=== PATIENT | female | born 1980 ===

== ENCOUNTER 2016-05-13 12:27 | Emergency (ER) | payer OTHER ==
[~2016-05-13] VITALS: Ht 157.5 cm; Wt 57.2 kg
[~2016-05-13 12:27] MED LIST: AUGMENTIN 500-1 EACH PO; CLINDAMYCIN HC300 M1 PO; IBUPROFEN800 M1 PO; ROBITUSSIN AC SY5 ML PO; TYLENOL WITH C1 EACH PO; ZOFRAN ODT4 MG SL
[2016-05-13 13:09] LABS: ABSOLUTE BASOPHIL COUNT 0 /CUMM (0.0-0.2); ABSOLUTE EOSINOPHIL COUNT 0 /CUMM (0.0-0.7); ABSOLUTE GRANULOCYTE CT 8.9 /CUMM (1.4-6.5); ABSOLUTE LYMPH COUNT 1.4 /CUMM (1.2-3.4); ABSOLUTE MONOCYTE COUNT 0.4 /CUMM (0.10-0.60); BASOPHIL % 0.2 % (0.0-2.0); EOSINOPHIL % 0.4 % (0-5); GRANULOCYTE % 82.5 % (42.2-75.2); HEMATOCRIT 34.5 % (37-47); MEAN CORPUSCULAR HGB 24.9 PG (27.0-31.0); MEAN CORPUSCULAR VOLUME 77.8 FL (81.0-99.0); MEAN PLATELET VOLUME 8.6 FL (7.4-10.4); PLATELET COUNT 341 /CUMM (130-400); RBC DISTRIBUTION WIDTH 15.9 % (11.5-14.5); RED BLOOD CELL CT 4.44 /CUMM (4.20-5.40); WHITE BLOOD CELL COUNT 10.8 /CUMM (4.8-10.8)
--- NOTE | 2016-05-13 13:59 | ED CARDIAC/CP/PALPITATIONS ---
History of Present Illness General Chief Complaint: Chest Pain Stated Complaint: NVD, CP Source: patient Exam Limitations: no limitations Vital Signs & Intake/Output Vital Signs & Intake/Output Vital Signs Date Time Temp Pulse Resp B/P Pulse O2 O2 Flow FiO2 Ox Delivery Rate 05/13 1453 99.5 115 20 112/62 100 Room Air 05/13 1400 Room Air Room Air 05/13 1236 99.5 103 18 112/74 99 Room Air Room Air Allergies Coded Allergies: No Known Allergies (05/13/16) Reconcile Medications Azithromycin (Zithromax) 250 MG TABLET 1 DP PO AD BRONCHITIS 2 the first day followed by 1 for days 2-5 Ondansetron (Zofran Odt) 4 MG TAB.RAPDIS 1 TAB PO Q6 PRN NAUSEA Triage Note: TRIAGE: 36 Y/O FEMALE PRESENTS C/O 5/10 LEFT SIDED CHEST PAIN SINCE LAST NIGHT, WORSENING THIS MORNING. REPORTS +NAUSEA. DENIES SOB. HISTORY OF VERTIGO. CONSOLABLE IN EKG [place]. EKG COMPLETED. Triage Nurses Notes Reviewed? yes Onset: Gradual Duration: week(s): (several ), worse persistent since (yesterday) Timing: recent history Associated Symptoms: fever/chills, nausea/vomiting : No Patient currently breastfeeds: No HPI: 36 year old female presents with 1 day history of n/v, can't tolerate food or fluids. Positive chills. 1 week history of sore throat, runny nose and dizzness. No cough. Patient reports minor chest pain which was brief this morning. She reports not feeling well for the past 3-4 weeks. She recently came back from [facility]. Reports high fever 2 days prior to coming back to the [facility]. Since that time she has reported subjective fever/chills, malaise and diaphoresis. Past History Travel History Traveled to [place] past 21 day No Medical History Any Pertinent Medical History? see below for history Neurological: vertigo Hepatic: LIVER DISEASE DURING Surgical History Surgical History: non-contributory Psychosocial History What is your primary language Thai Tobacco Use: Never used ETOH Use: denies use Illicit Drug Use: denies illicit drug use Family History Hx Contributory? No Review of Systems Review of Systems Constitutional: Reports: chills, fever, malaise, weakness. EENTM: Reports: no symptoms. Respiratory: Reports: cough. Denies: short of breath, sputum production. Cardiovascular: Denies: chest pain. GI: Reports: abdominal pain, nausea, vomiting. Genitourinary: Reports: no symptoms. Musculoskeletal: Reports: no symptoms. Skin: Reports: no symptoms. Neurological/Psychological: Reports: no symptoms. Hematologic/Endocrine: Denies: bruising, bleeding, polyuria, polydipsia. Immunologic/Allergic: Denies: splenectomy. All Other Systems: Reviewed and Negative Physical Exam Physical Exam General Appearance: well developed/nourished, alert, awake Head: atraumatic, normal appearance Eyes: Bilateral: normal appearance, PERRL, EOMI. Ears, Nose, Throat: normal pharynx, normal ENT inspection, hearing grossly normal Neck: normal inspection, supple, full range of motion Respiratory: normal breath sounds, chest non-tender, no respiratory distress Cardiovascular: regular rate/rhythm Peripheral Pulses: 2+ radial (R), 2+ radial (L) Gastrointestinal: normal bowel sounds, soft, non-tender Extremities: normal inspection, normal range of motion, no edema Neurologic/Psych: no motor/sensory deficits, awake, alert, oriented x 3 Skin: intact, normal color, warm/dry Core Measures ACS in differential dx? No Severe Sepsis Present: No Septic Shock Present: No Progress Differential Diagnosis: pneumonia, bronchitis, VIRAL SYNDROME, MALARIA, Plan of Care: Orders Procedure Date/time Status Add-on Test (ER Only) 05/13 1431 Active Add-on Test (ER Only) 05/13 1421 Active RAPID VIRAL INFLUENZA A 05/13 1409 Complete URINALYSIS 05/13 1408 Active HEPATITIS PANEL 05/13 1250 Active TROPONIN LEVEL 05/13 1242 Active HUMAN BETA HCG SCREEN 05/13 1242 Active COMPREHENSIVE METABOLIC PANEL 05/13 1242 Active CBC WITHOUT DIFFERENTIAL 05/13 1242 Complete EKG 05/13 1229 Active Laboratory Tests 05/13/16 1250: Hepatitis A IgM Ab Pending, Hep Bs Antigen NONREACTIVE, Hep B Core IgM Ab Conf Pending, Hepatitis C Antibody Pending 05/13/16 1250: Anion Gap 12, Estimated GFR > 60, BUN/Creatinine Ratio 12.5, Glucose 84, Calcium 9.6, Total Bilirubin 0.5, AST 27, ALT 33, Alkaline Phosphatase 87, Troponin I < 0.01, Total Protein 7.8, Albumin 4.2, Globulin 3.6, Albumin/Globulin Ratio 1.2, Total Beta HCG NEGATIVE, CBC w Diff MAN DIFF ORDERED, RBC 4.44, MCV 77.8 L, MCH 24.9 L, RDW 15.9 H, MPV 8.6, Gran % 82.5 H, Lymphocytes % 12.9 L, Monocytes % 4.0, Eosinophils % 0.4, Basophils % 0.2, Absolute Granulocytes 8.9 H, Absolute Lymphocytes 1.4, Absolute Monocytes 0.4, Absolute Eosinophils 0, Absolute Basophils 0, Platelet Estimate VERIFIED BY SMEAR, Hypochromic- Microcytic 1+, Anisocytosis 1+, Microcytic Cells 1+, PUBS MCHC 32.0 L, Blood Parasites ID Pending Microbiology 05/13 1445 NASOPHARYN: Influenza Virus A & B Rapid Smear - COMP LABS, FLU SWAB, CXR. IV NS, TORADOL, ZOFRAN ORDERED. PERIPHERAL SMEAR ORDERED. D/W DR DIANA. (HOLLEY JOSEPH,LAURA) Diagnostic Imaging: Viewed by Me: Radiology Read. Discussed w/RAD: Radiology Read. Initial ED EKG: none Comments: PATIENT: ANN RIVERA PRESENT AGE: 36 PATIENT ACCOUNT NO: [id number] : 81 LOCATION: [facility] ORDERING PHYSICIAN: LAURA BABB MD SERVICE DATE: 05/13/16 EXAM TYPE: RAD - XRY-CHEST XRAY, PA AND LATERAL EXAMINATION: XR CHEST CLINICAL INFORMATION: Fever x1 week, upper respiratory symptoms. COMPARISON: None TECHNIQUE: 2 views of the chest were obtained. FINDINGS: The cardiac size is within normal range. The mediastinal contours are unremarkable. There is mild diffuse thickening of the interstitial markings at the lung bases, left greater than right. This mostly is localized to the left lower lobe. There is no focal consolidation. There is no effusion. No pneumothorax. Visualized osseous structures are unremarkable. IMPRESSION: Findings are most suggestive of an atypical infectious process. Other etiologies but considered much less likely would include underlying edema. DICTATED BY: PHOEBE NIETO MD DATE/TIME DICTATED:05/13/161516 MONORAIL HOOKER:AARTI DATE/TIME TRANSCRIBED:05/13/161516 CONFIDENTIAL, DO NOT COPY WITHOUT APPROPRIATE AUTHORIZATION. <Electronically signed in Other Vendor System> SIGNED BY: PHOEBE NIETO MD 04/08/17 1522 Departure Departure Time of Disposition: 1540 Disposition: HOME OR SELF CARE Condition: Stable Clinical Impression Primary Impression: Gastroenteritis Referrals: GEENA CABRERA DO, MD,MICKEY PONCE MD,PORFIRIO Additional Instructions: Take the antibiotics as directed and please follow up with one of the primary care doctors listed. Drink plenty of fluids. Motrin and Tylenol as needed for fever. Take Zofran as needed for nausea. Return to the ER for any worsening fevers, chills, sweating, cough or shortness of breath. Departure Forms: Customer Survey General Discharge Information Prescriptions: Current Visit Scripts Ondansetron (Zofran Odt) 1 TAB PO Q6 PRN NAUSEA #10 TAB Azithromycin (Zithromax) 1 DP PO AD #6 TAB 2 the first day followed by 1 for days 2-5 Critical Care Note Critical Care Note Critical Care Time: non-applicable
[2016-05-13 14:53] VITALS: BP 112/62
--- NOTE | 2016-05-13 15:22 | RADIOLOGY REPORT ---
EXAMINATION: XR CHEST CLINICAL INFORMATION: Fever x1 week, upper respiratory symptoms. COMPARISON: None TECHNIQUE: 2 views of the chest were obtained. FINDINGS: The cardiac size is within normal range. The mediastinal contours are unremarkable. There is mild diffuse thickening of the interstitial markings at the lung bases, left greater than right. This mostly is localized to the left lower lobe. There is no focal consolidation. There is no effusion. No pneumothorax. Visualized osseous structures are unremarkable. IMPRESSION: Findings are most suggestive of an atypical infectious process. Other etiologies but considered much less likely would include underlying edema.
[2016-05-13] MEDS ORDERED: ZOFRAN ODT4 M1 PO (15:42)
[2016-05-13] MEDS ORDERED: ZITHROMAX250 M2 PO (15:42)
== END 2016-05-13 16:01 ==
LOC: ERH 12:27
PROVIDERS: Emergency Medicine
DX: K52.9 Noninfective gastroenteritis and colitis, unspecified (principal); R07.9 Chest pain, unspecified
CPT/HCPCS: 87207; 87804; 87804-59; 93005; 93010; 96374; 96375; J1885; J2405